=== PATIENT | male | born 1935 | race Caucasian/White ===

== ENCOUNTER → 2020-03-07 10:31 | Outpatient (CLI) | payer OTHER, SELFPAY ==
--- NOTE | ~2020-03-07 | XR_ITS ---
XR knee RT min 4V DATE: 03/07/2020 10:49 INDICATION: Right knee pain TECHNIQUE: Standing AP, PA views. Lateral view and sunrise view. COMPARISON: None FINDINGS: No fracture or dislocation or joint effusion. No periosteal reaction or bone destruction. Moderate osteopenia. There is severe loss of height of the medial compartment joint space with periarticular spurring at t he medial compartment. Lateral compartment joint space is preserved. There is mild periarticular spurring at the patellofemoral joint. IMPRESSION: Osteoarthritis involving particularly severely the medial compartment Reviewed, dictated and finalized at location B. IMPRESSION: Osteoarthritis involving particularly severely the medial compartme nt
== END ==
PROVIDERS: PCP Internal Medicine; Visit Provider Internal Medicine
DX: M17.11 Unilateral primary osteoarthritis, right knee (principal)
CPT/HCPCS: 73564

== ENCOUNTER 2022-01-31 10:21 | Outpatient (CLI) | payer OTHER, SELFPAY ==
[2022-01-31 18:57] LABS: Alanine Aminotransferase 29 U/L (6-50); Albumin Level 4.6 g/dL (3.5-5.1); Alkaline Phosphatase 79 U/L (38-126); Anion Gap 7 mmol/L (8-16); Aspartate Amino Transferase 32 U/L (17-59); Bilirubin,Total 0.9 mg/dL (0.2-1.3); Blood Urea Nitrogen 19 mg/dL (9-20); Calcium 8.9 mg/dL (8.4-10.2); Carbon Dioxide 29 mmol/L (22-30); Chloride 106 mmol/L (98-107); Cholesterol 190 mg/dL (0-200); Estimated Glomerular Filt Rate > 60; Glucose 113 mg/dL (65-110); HDL Direct 38 mg/dL; Potassium 4.2 mmol/L (3.4-5.0); Sodium 142 mmol/L (137-145); Triglycerides 199 mg/dL (<150)
[2022-01-31 19:08] LABS: LDL Cholesterol Direct 95 mg/dL
== END 2022-01-31 10:22 | disposition home or self-care (01) ==
LOC: ANHGOSHLAB 10:26
PROVIDERS: PCP Family Medicine; Visit Provider Family Medicine
DX: E78.2 Mixed hyperlipidemia (principal); I10 Essential (primary) hypertension; R73.09 Other abnormal glucose; E03.9 Hypothyroidism, unspecified
CPT/HCPCS: 36415; 80053; 80061; 83036; 84443

== ENCOUNTER 2022-06-08 10:27 | Inpatient (IN) | payer OTHER, SELFPAY ==
[2022-06-08] VITALS (12 sets, daily range): BP systolic 151–191; BP diastolic 65–92; PULSE 72–87; RESP 13–20; TEMP 36.4–36.6; O2SAT 95–100
--- NOTE | ~2022-06-08 | CT_ITS ---
EXAMINATION: CTA brain carotid DATE: 06/09/2022 13:03 INDICATION: Right hemiparesis. Facial weakness. TECHNIQUE: Computed tomographic angiography (CTA) of the head was performed without and with 100 mL O mnipaque-350 intravenous contrast. CTA of the neck was performed with intravenous contrast. Automated exposure control and iterative reconstruction technique were employed. The dose-length product was 1 868.44 mGy-cm. Maximum intensity projection and volume rendered 3D-reconstructions were created by je gunderson technologist on a separate workstation. COMPARISON: Head CT 06/08/2022 FINDINGS: HEAD CTA: There is an old infarct involving the right basal ganglia and anterior limb right internal capsule. There is an infarct involving the left basal ganglia and left internal capsule. There are sc attered areas of low attenuation in the cerebral white matter. There is no intracranial hemorrhage, a cute infarction, or abnormal intracranial mass lesion. The ventricles are normal in size. There are l ikely changes of ocular lens replacement surgeries. There is mucosal thickening in the paranasal sinu ses. There is a left otomastoid effusion. The vertebral arteries are codominant. There is moderate st enosis of distal left vertebral artery. There is no significant stenosis of basilar artery or the pos terior cerebral arteries. There is mild stenosis of the intracranial internal carotid arteries. There is no significant stenosis of the anterior or middle cerebral arteries. Anterior communicating arter y is normal. Left posterior communicating artery is normal. A right posterior communicating artery is not identified. There is no aneurysm. NECK CTA: There is mild scarring at the lung apices. There are no pathologically enlarged lymph nodes . 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 There is plaque in the proxim al internal carotid arteries. There is 0% stenosis of the proximal right internal carotid artery rela tive to normal distal artery lumen diameter (NASCET criteria). There is 0% stenosis of the proximal l eft internal carotid artery relative to normal distal artery lumen diameter. There is severe cervical spondylosis. IMPRESSION: 1. Infarct involving the left basal ganglia and left internal capsule, likely acute. 2. Old infarct involving the right basal ganglia and anterior limb right internal capsule. 3. Mild nonspecific cerebral white matter disease, which likely represents chronic small vessel ische barrie disease. 4. Moderate stenosis of distal left vertebral artery. 5. 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 6. 0% stenosis of the proximal internal carotid arteries relative to normal distal artery lumen diam eters (NASCET criteria). Reviewed, dictated and finalized at location A. ING AID CONSULTANT IMPRESSION: 1. Infarct involving the left basal ganglia and left internal capsule, likely a cute. 2. Old infarct involving the right basal ganglia and anterior limb right supply chain intern al capsule. 3. Mild nonspecific cerebral white matter disease, which likely represents micro[employer] dynamics ax consultant ni small vessel ischemic disease. 4. Moderate stenosis of distal left vertebral artery. 5. 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 6. 0% stenosis of the proximal internal carotid arteries relative to normal di stal artery lumen diameters (NASCET criteria).
--- NOTE | ~2022-06-08 | CT_ITS ---
EXAMINATION: CT brain wo con DATE: 06/11/2022 16:04 INDICATION: Decreased right paresis TECHNIQUE: Computed tomography (CT) of the head was performed without intravenous contrast. The mA wa s adjusted according to patient size. Iterative reconstruction technique was employed. Exam dose: 60 5.33 mGy-cm total exam DLP. COMPARISON: 06/11/2022 MR brain/brainstem 06/10/2022 MRI brain/brainstem 06/09/2022 CTA brain carotid 06/08/2022 CT brain FINDINGS: There is interval decreased attenuation in the left basal ganglia and periventricular area since 06/08/2022 CT brain examination, consistent with very recent nonhemorrhagic cerebrovascular acc ident. Chronic lacunar infarct in the area of the right basal ganglia and anterior limb of the right interna l capsule. Prominent bilateral vertebral artery, basilar artery and prominent bilateral carotid siphon internal carotid artery calcifications. There is nonspecific diminished attenuation of the cerebral white fransisca er, consistent with chronic small vessel ischemic changes. No intracranial mass lesion or hemorrhage, midline shift or significant mass effect. Large right maxillary sinus polyp or mucous retention cyst. The paranasal sinuses and right mastoid a ir cells are otherwise unremarkable. There is some effusion at the left mastoid air cells. No fracture or bone destruction of the cranial vault. IMPRESSION: Left basal ganglia and periventricular recent nonhemorrhagic cerebrovascular accident Chronic lacunar infarct of right basal ganglia and anterior limb of right internal capsule Cerebral atherosclerosis and chronic small vessel ischemic changes of the cerebral white matter Reviewed, dictated and finalized at Location A. Reviewed, dictated and finalized at location L. RING DISTRIBUTION CLERK IMPRESSION: Left basal ganglia and periventricular recent nonhemorrhagic cereb rovascular accident Chronic lacunar infarct of right basal ganglia and anterior limb of right inter nal capsule Cerebral atherosclerosis and chronic small vessel ischemic changes of the cereb ral white matter
--- NOTE | ~2022-06-08 | MR_ITS ---
EXAMINATION: MR brain/brain stem wo con DATE: 06/11/2022 16:33 INDICATION: Hemiparesis. TECHNIQUE: Magnetic resonance imaging (MRI) of the brain and brainstem was performed without intraven ous contrast. COMPARISON: Brain MRI 06/10/2022, head CT 06/11/2022 FINDINGS: There is an acute infarct involving the left basal ganglia and left internal capsule. There is an old infarct involving the right basal ganglia and right internal capsule. There are scattered areas of nonspecific increased T2-weighted signal intensity in the cerebral white matter. There is no intracranial hemorrhage or abnormal mass lesion. The ventricles are normal in size. There are mucous retention cysts in the maxillary sinuses. There is mild mucosal thickening in the ethmoid sinuses. T here are likely changes of ocular lens replacement surgeries. There are bilateral mastoid effusions. IMPRESSION: 1. Acute infarct involving the left basal ganglia and left internal capsule, stable from 06/10/22. 2. Old infarct involving the right basal ganglia and right internal capsule. 3. Stable mild nonspecific cerebral white matter disease, which likely represents chronic small vesse l ischemic disease. Reviewed, dictated and finalized at location A. TY SITTER IMPRESSION: 1. Acute infarct involving the left basal ganglia and left internal capsule, st able from 06/10/22. 2. Old infarct involving the right basal ganglia and right internal capsule. 3. Stable mild nonspecific cerebral white matter disease, which likely represen ts chronic small vessel ischemic disease.
--- NOTE | ~2022-06-08 | CT_ITS ---
EXAMINATION: CT brain wo con DATE: 06/08/2022 10:55 INDICATION: Aphasia. TECHNIQUE: Computed tomography (CT) of the head was performed without intravenous contrast. The mA wa s adjusted according to patient size. Iterative reconstruction technique was employed. The dose-lengt h product was 605.33 mGy-cm. COMPARISON: None FINDINGS: There is an old infarct involving the right basal ganglia and anterior limb right internal capsule. There are scattered areas of low attenuation in the cerebral white matter. There is no intra cranial hemorrhage, acute infarction, or abnormal intracranial mass lesion. The ventricles are normal in size. There is mucosal thickening in the paranasal sinuses. There are likely changes of ocular le ns replacement surgeries. There is a left otomastoid effusion. IMPRESSION: 1. Old infarct involving the right basal ganglia and anterior limb right internal capsule. 2. Mild nonspecific cerebral white matter disease, which likely represents chronic small vessel ische barrie disease. 3. Left otomastoid effusion. Reviewed, dictated and finalized at location A. CTOR INDUSTRIAL MUSEUM IMPRESSION: 1. Old infarct involving the right basal ganglia and anterior limb right engineer intern al capsule. 2. Mild nonspecific cerebral white matter disease, which likely represents glaze sprayer ni small vessel ischemic disease. 3. Left otomastoid effusion.
--- NOTE | ~2022-06-08 | XR_ITS ---
EXAMINATION: XR chest 1V DATE: 06/08/2022 10:58 INDICATION: Slurred speech. TECHNIQUE: A single frontal view of the chest was obtained. COMPARISON: Chest 2 views 01/31/2011, CT abdomen and pelvis 09/24/2013 FINDINGS: There is no pneumonia, pleural effusion, or pneumothorax. The heart size is normal. Calcifi ed right hilar lymph nodes are consistent with old granulomatous disease. IMPRESSION: 1. No acute cardiopulmonary disease. Reviewed, dictated and finalized at location A. ITAL PERSONNEL DIRECTOR
--- NOTE | ~2022-06-08 | US_ITS ---
EXAMINATION: US carotid duplex BI DATE: 06/10/2022 09:49 INDICATION: Right hemiparesis. TECHNIQUE: Grayscale, color Doppler, and pulsed Doppler images of the cervical carotid arteries were obtained. The degree of vessel stenosis is placed in one of the following categories: normal, <50%, 5 0-69%, >=70% but less than near-occlusion, near-occlusion, or total occlusion. Note that percent sten osis relative to normal distal artery lumen diameter is indirectly measured from velocity measurement s as described by Ian, et al. Radiology 2003; 229:340-346. COMPARISON: CTA 06/09/22 FINDINGS: RIGHT: The right common carotid artery (CCA) peak systolic velocity (PSV) is 91 cm/s. The right internal car otid artery (ICA) PSV is 72 cm/s. The right ICA end-diastolic velocity (EDV) is 21 cm/s. The right IC A/CCA PSV ratio is 0.8. Grayscale and color Doppler images yield an estimate of <50% diameter reducti on from plaque in the ICA. There is antegrade flow in the right vertebral artery. LEFT: The left CCA PSV is 87 cm/s. The left ICA PSV is 76 cm/s. The left ICA EDV is 20 cm/s. The left ICA/C CA PSV ratio is 0.9. Grayscale and color Doppler images yield an estimate of <50% diameter reduction from plaque in the ICA. There is antegrade flow in the left vertebral artery. IMPRESSION: 1. <50% stenosis in the right internal carotid artery. 2. <50% stenosis in the left internal carotid artery. Reviewed, dictated and finalized at location A. RITY OFFICER
--- NOTE | ~2022-06-08 | XR_ITS ---
EXAMINATION: XR barium swallow modified DATE: 06/11/2022 10:38 INDICATION: Stroke, dysphagia TECHNIQUE: Modified barium esophagram was performed by myself who administered fluoroscopy, in conju nction with speech pathologist who administered barium in varying consistencies as per speech patholo gist documentation. This was recorded on tape. A single fluoroscopic spot image was recorded. Fluoros copy exposure time was 2.3 minutes. The DAP for this procedure was 3.952 Gycm2. FINDINGS: Oral stage: Adequate function. Pharyngeal phase: Adequate function. Laryngeal penetration: None. Aspiration: None. Laryngeal sensitivity: Present. IMPRESSION: Unremarkable modified barium swallow. Please refer to speech pathologist findings and spe [facility] feeding recommendations. Reviewed, dictated and finalized at location A. TOP INSTALLER IMPRESSION: Unremarkable modified barium swallow. Please refer to speech pathol ogist findings and specific feeding recommendations.
--- NOTE | ~2022-06-08 | MR_ITS ---
EXAMINATION: MR brain/brain stem wo/w con DATE: 06/10/2022 08:57 INDICATION: Cerebrovascular accident. Speech deficit. TECHNIQUE: Magnetic resonance imaging (MRI) of the brain and brainstem was performed without and with 20 mL MultiHance intravenous contrast. COMPARISON: Head CT 06/09/2022 FINDINGS: There is an acute infarct involving the left basal ganglia and left internal capsule. There is an acute cortical infarct in left frontoparietal region. There is an old infarct involving the ri ght basal ganglia and right internal capsule. There are scattered areas of nonspecific increased T2-w eighted signal intensity in the cerebral white matter. There is no intracranial hemorrhage or abnorma l mass lesion. The ventricles are normal in size. There are mucous retention cysts in the maxillary s inuses. There is mild mucosal thickening in the ethmoid sinuses. There are likely changes of ocular l ens replacement surgeries. There are bilateral mastoid effusions. IMPRESSION: 1. Acute infarcts involving the left basal ganglia, left internal capsule, and left frontoparietal re gion. 3. Old infarct involving the right basal ganglia and right internal capsule. 3. Mild nonspecific cerebral white matter disease, which likely represents chronic small vessel ische barrie disease. Reviewed, dictated and finalized at location A. USIE INSTALLER IMPRESSION: 1. Acute infarcts involving the left basal ganglia, left internal capsule, and left frontoparietal region. 3. Old infarct involving the right basal ganglia and right internal capsule. 3. Mild nonspecific cerebral white matter disease, which likely represents foam caster ni small vessel ischemic disease.
--- NOTE | 2022-06-08 10:43 | ECG_ITS ---
Measurements Intervals [place] Rate: 75 P: 25 OR: 153 QRS: 0 QRSD: 89 T: 34 QT: 398 QTc: 446 Interpretive Statements SINUS RHYTHM BASELINE ARTIFACT- I, II, III, AVR, AVL, AVF, V2, V5-V6 NORMAL ECG NO PREVIOUS ECG AVAILABLE FOR COMPARISON Electronically Signed On 06-09-2022 7:29:56 TRAVEL AGENT by Sanju Aviles D.O.
--- NOTE | 2022-06-08 10:51 | ED.NEUROSD ---
HPI - Neuro Symptoms/Deficit General Chief Complaint: Suspected CVA Stated Complaint: weakness. slurred speech. maybe resolved Time Seen by Provider: 06/08/22 10:51 History of Present Illness HPI Narrative: this is an 86-year-old male presenting to ED with chief complaint of slurred speech/weakness. The patient was sitting on his recliner at 9:30 a.m. he started to have trouble getting out of his chair. When they called his son the son thought that he had slurred speech on the phone and EMS was called. He was then brought to the emergency room. Here in the emergency department he is asymptomatic. He has no complaints at this time. Related Data Allergies Allergy/AdvReac Type Severity Reaction Status Date / Time No Known Allergies Allergy Verified 06/08/22 11:22 Review of Systems Review of Systems: CONSTITUTIONAL: Denies night sweats. EYES: No eye pain ENT: Denies rhinorrhea CARDIOVASCULAR: Denies palpitations RESPIRATORY: Denies hemoptysis GASTROINTESTINAL: Denies hematemesis GENITOURINARY: Denies hematuria. SKIN: Denies rash MUSCULOSKELETAL: Denies myalgia. NEUROLOGIC: Denies weakness. PSYCHIATRIC: Denies delusions [facility] Past Medical History Medical History BMI 29.0-29.9,adult Heart disease Surgical History Surgical History Hx of heart artery stent Family History Family History Mother Family history of respiratory disorder Patient's mother is Social History Social History Smoking status: Never smoker Alcohol intake: never Substance use: current Gender identity (if verbalized by the patient): Male Exam Narrative: APPEARANCE: No apparent distress. Head: atraumatic. EYES: EOMI, NOSE: Atraumatic NECK: Trachea midline RESPIRATORY: No increased rate of breathing , clear to auscultation bilaterally CARDIOVASCULAR: RRR, no peripheral edema ABDOMINAL: Non-distended MUSCULOSKELETAl: No obvious deformities NEURO: Alert. Cranial nerves 2-12 grossly intact. Sensation light touch, motor function cerebellar function intact for 4 extremities. Gait exam was normal. SKIN:: Warm, dry. Normal color PSYCHIATRIC: Normal affect NIH Stroke Scale/Score (NIHSS) from [employer] on 06/08/2022 All calculations should be rechecked by clinician prior to use RESULT SUMMARY: 0 points NIH Stroke Scale INPUTS: 1A: Level of consciousness ?> 0 = Alert; keenly responsive 1B: Ask month and age ?> 0 = Both questions right 1C: 'Blink eyes' & 'squeeze hands' ?> 0 = Performs both tasks 2: Horizontal extraocular movements ?> 0 = Normal 3: Visual glynn ?> 0 = No visual loss 4: Facial palsy ?> 0 = Normal symmetry 5A: Left arm motor drift ?> 0 = No drift for 10 seconds 5B: Right arm motor drift ?> 0 = No drift for 10 seconds 6A: Left leg motor drift ?> 0 = No drift for 5 seconds 6B: Right leg motor drift ?> 0 = No drift for 5 seconds 7: Limb Ataxia ?> 0 = No ataxia 8: Sensation ?> 0 = Normal; no sensory loss 9: Language/aphasia ?> 0 = Normal; no aphasia 10: Dysarthria ?> 0 = Normal 11: Extinction/inattention ?> 0 = No abnormality Course Vital Signs Vital signs: Vital Signs Temperature 97.8 F 06/08/22 10:33 Pulse Rate 83 06/08/22 10:33 Respiratory Rate 18 06/08/22 10:33 Blood Pressure 178/78 H 06/08/22 10:33 Pulse Oximetry 100 06/08/22 10:33 Oxygen Delivery Room Air 06/08/22 10:33 Temperature 97.8 F 06/08/22 10:33 Pulse Rate 76 06/08/22 11:20 Respiratory Rate 20 06/08/22 11:20 Blood Pressure 153/79 H 06/08/22 11:20 Pulse Oximetry 96 06/08/22 11:20 Oxygen Delivery Room Air 06/08/22 10:33 MDM - Neuro Symptoms/Deficit MDM Narrative Medical decision making narrative: This is an 86-year-old male presenting to ED after an e
[2022-06-08 11:13] LABS: Basophils Absolute Auto 0.1 K/mm3 (0.0-0.1); Basophils Percent Auto 0.9 % (0.2-1.2); Eosinophils Absolute Auto 0.1 K/mm3 (0-0.3); Eosinophils Percent Auto 1.6 % (0-4.4); Hematocrit 46.8 % (42.0-52.0); Hemoglobin 15.6 g/dL (14.0-18.0); Immature Granulocyte Absolute 0.01 K/mm3 (0.00-0.031); Immature Granulocyte Percent A 0.2 % (0-0.5); Lymphocytes Absolute Auto 1.51 K/mm3 (0.9-3.2); Lymphocytes Percent Auto 23.7 % (18.3-44.2); Mean Corpuscular HGB Conc 33.3 g/dl (32-36); Mean Platelet Volume 11.8 fl (7.4-10.4); Monocytes Absolute Auto 0.6 K/mm3 (0.1-0.6); Monocytes Percent Auto 8.8 % (2.6-8.5); Neutrophils Absolute Auto 4.1 K/mm3 (1.3-6.7); Neutrophils Percent Auto 64.8 % (45.5-73.1); Platelet Count Result 171 k/mm3 (150-375); Red Blood Count 5.03 M/mm3 (4.6-6.20); Red Cell Distribution Width 12.7 % (11.5-14.5); White Blood Count 6.4 K/mm3 (4.5-10.0)
[2022-06-08 11:26] LABS: INR 1.1; Prothrombin Time 13.4 Seconds (11.1-14.7)
[2022-06-08 11:27] LABS: Partial Thromboplastin Time 27.2 SECONDS (22.3-36.8)
[2022-06-08 11:29] LABS: Alanine Aminotransferase 34 U/L (6-50); Albumin Level 4.7 g/dL (3.5-5.1); Alkaline Phosphatase 71 U/L (38-126); Anion Gap 6 mmol/L (8-16); Aspartate Amino Transferase 30 U/L (17-59); Bilirubin,Total 0.8 mg/dL (0.2-1.3); Blood Urea Nitrogen 14 mg/dL (9-20); Calcium 8.7 mg/dL (8.4-10.2); Carbon Dioxide 28 mmol/L (22-30); Chloride 106 mmol/L (98-107); Estimated CRCL calculation 66 ml/min; Estimated Glomerular Filt Rate > 60; Glucose 105 mg/dL (65-110); Potassium 4.1 mmol/L (3.4-5.0); Sodium 140 mmol/L (137-145)
[2022-06-08 11:40] LABS: Troponin I < 0.012 ng/mL (0.000-0.034)
[2022-06-08 11:46] LABS: Glucose Point of Care 108 mg/dl (65-105)
[2022-06-08 11:49] LABS: Influenza A QL RT-PCR Negative (Negative); Influenza B QL RT-PCR Negative (Negative); RSV RNA, RT-PCR Negative (Negative); SARS-CoV-2 RNA PCR Negative
[2022-06-08] MEDS: ASPIRIN 81 MG CHEWABLE TABLET 324 MG PO (14:27)
--- NOTE | 2022-06-08 16:11 | PC.NURSE ---
This patient, Jaci Shelley, was admitted to Medical Room 245-. Report received from TAMARA Carvalho. Patient/family oriented to hospital policies and general routines including ID bracelet, bed and alarms, visiting hours, pain management, procedures, bathroom and other care routines, personal items, smoking policy, room service/diet, and visiting hours. Information on how to activate the Rapid Response Team has been discussed. Patient/Family are encouraged to report perceived risks to care and to ask questions if they do not understand what they are told or what they should do.
--- NOTE | 2022-06-08 19:03 | PM.IMHP ---
H&P: HPI History of Present Illness Date/Time: 06/08/22 19:03 Chief Complaint: Suspected CVA Narrative: This is a 86-year-old male patient who has a history of CVAs. He came to the emergency room with complaints of slurred speech and weakness. The patient was sitting in a recliner at 9:30 a.m. this morning and he was having trouble getting out of his chair. The son thought that his speech was slurred and called EMS. Patient was asymptomatic when he came to the hospital. His troponin was nonreactive. His influenza A/B and RSV and COVID are all negative. Head CT was read as following1. Old infarct involving the right basal ganglia and anterior limb right internal capsule. 2. Mild nonspecific cerebral white matter disease, which likely represents chronic small vessel ischemic disease. 3. Left otomastoid effusion. Chest x-ray was read as no acute cardiopulmonary disease. -the patient was given an aspirin in the emergency room The patient is being admitted to observation status on the date of service of 06/08/2022 Review of Systems Review of Systems: See HPI All systems reviewed & are unremarkable except as noted in HPI and below Constitutional: Constitutional: Reports as per HPI and Reports no additional constitutional complaints Eyes: Eyes: Reports as per HPI and Reports no additional eye complaints ENT: Reports system reviewed and no additional complaints, except as documented and Reports Normal hearing present Cardiovascular: Cardiovascular: Reports no additional cardiovascular complaints Respiratory: Respiratory: Reports no additional respiratory complaints and Reports no additional respiratory complaints Gastrointestinal: Gastrointestinal: Reports as per HPI and Reports no additional gastrointestinal complaints Musculoskeletal: Musculoskeletal: Reports no additional musculoskeletal complaints Integumentary/Breasts: Skin/Breast: Reports system reviewed and no additional complaints, except as docu and Reports as per HPI Neurologic: Reports system reviewed and no additional complaints, except as documented, Reports as per HPI and Reports Normal hearing present Psychiatric: Psychiatric: Reports no additional psychiatric complaints and Reports as per HPI Endocrine: Endocrine: Reports no additional endocrine complaints Hematologic/Lymphatic: Hematologic/Lymphatic: Reports no additional hematologic/lymphatic complaints Allergic/Immunologic: Allergic/Immunologic: Reports no additional allergic/immunologic complaints [facility] Past Medical History Medical History BMI 29.0-29.9,adult Essential (primary) hypertension Heart disease History of CVA (cerebrovascular accident) Hypothyroidism (acquired) Mixed hyperlipidemia Surgical History Surgical History H/O cataract extraction History of removal of pigmented skin lesion Hx of heart artery stent Family History Family History Mother Family history of respiratory disorder Patient's mother is Social History Social History (Updated 06/08/22 @ 21:02 by Sharon Medley NP) Social History: He has 3 children. He lives with his . His and his son is a durable power civil litigation attorney for healthcare. The patient is retired from being a medical manager. He is lifelong nonsmoker. No alcohol or illicit drugs. The patient stated he wants to be a DNR. Smoking status: Never smoker Alcohol intake: never Substance use: never Lack of Transportation: No Lack of Food: Never True Current Housing: I Have Housing Concerned About Future Housing: No Difficulty Paying Gas/Electric Bills: No Difficulty Paying for Meds: No Currently Unemployed: No Education: Grade School Difficulty w/ Childcare or Family Care: No Gender identity (if verbalized by the patient): Male Spiritual care concer
[2022-06-09] VITALS (9 sets, daily range): BP systolic 138–171; BP diastolic 68–83; PULSE 71–88; RESP 16–18; TEMP 36.4–36.7; O2SAT 96–97
[2022-06-09] MEDS: LEVOTHYROXINE SODIUM 50 MCG TABLET PO (05:26)
[2022-06-09 05:47] LABS: Basophils Percent Auto 0.6 % (0.2-1.2); Eosinophils Absolute Auto 0.1 K/mm3 (0-0.3); Eosinophils Percent Auto 2.1 % (0-4.4); Hematocrit 45.3 % (42.0-52.0); Hemoglobin 14.8 g/dL (14.0-18.0); Immature Granulocyte Absolute 0.01 K/mm3 (0.00-0.031); Immature Granulocyte Percent A 0.2 % (0-0.5); Lymphocytes Absolute Auto 1.67 K/mm3 (0.9-3.2); Lymphocytes Percent Auto 26.3 % (18.3-44.2); Mean Corpuscular HGB Conc 32.7 g/dl (32-36); Mean Corpuscular Hemoglobin 30.8 pg (26-34); Mean Corpuscular Volume 94.4 fl (80-100); Mean Platelet Volume 12.3 fl (7.4-10.4); Monocytes Absolute Auto 0.6 K/mm3 (0.1-0.6); Monocytes Percent Auto 8.7 % (2.6-8.5); Neutrophils Absolute Auto 3.9 K/mm3 (1.3-6.7); Neutrophils Percent Auto 62.1 % (45.5-73.1); Platelet Count Result 162 k/mm3 (150-375); Red Cell Distribution Width 12.7 % (11.5-14.5); White Blood Count 6.3 K/mm3 (4.5-10.0)
[2022-06-09 05:59] LABS: Lactic Acid Reflex 1.4 mmol/L (0.7-2.0)
[2022-06-09 07:12] LABS: Alanine Aminotransferase 32 U/L (6-50); Albumin Level 4.2 g/dL (3.5-5.1); Alkaline Phosphatase 62 U/L (38-126); Anion Gap 7 mmol/L (8-16); Aspartate Amino Transferase 27 U/L (17-59); Bilirubin,Total 0.8 mg/dL (0.2-1.3); Blood Urea Nitrogen 14 mg/dL (9-20); Calcium 8.5 mg/dL (8.4-10.2); Carbon Dioxide 28 mmol/L (22-30); Chloride 102 mmol/L (98-107); Estimated CRCL calculation 60 ml/min; Estimated Glomerular Filt Rate > 60; Glucose 109 mg/dL (65-110); Magnesium 2.2 mg/dL (1.6-2.3); Potassium 3.6 mmol/L (3.4-5.0); Sodium 137 mmol/L (137-145)
[2022-06-09 07:39] LABS: Cholesterol 180 mg/dL (0-200); HDL Direct 36 mg/dL; Triglycerides 159 mg/dL (<150)
[2022-06-09 07:50] LABS: LDL Cholesterol Direct 96 mg/dL
[2022-06-09] MEDS: ATORVASTATIN 40 MG TABLET PO ×2 (08:17→14:28)
[2022-06-09] MEDS: carvediloL 3.125 MG TABLET PO ×2 (08:17→17:38)
[2022-06-09] MEDS: ASCORBIC ACID 500 MG TABLET 1000 MG PO (08:17)
[2022-06-09] MEDS: ASPIRIN 81 MG CHEWABLE TABLET PO (08:17)
--- NOTE | 2022-06-09 10:14 | PM.IMPN ---
Progress Note: A&P Assessment and Plan (1) History of CVA (cerebrovascular accident): Code(s): Z86.73 - Personal history of transient ischemic attack (TIA), and cerebral infarction without residual deficits Status: Acute Assessment and Plan: Patient presented to the ED for evaluation of slurred speech and weakness such that he was having trouble getting out of his chair. This occurred on 06/08 at 0930. Symptoms reported to resolve in the ED and NIH score 0. Patient was not a candidate for tPA. Given aspirin 325 mg PO in ED. Continued on aspirin 81 mg PO daily and atorvastatin 40 mg PO daily (home dose). Neurology consulted and appreciate recommendations. MRI brain ordered and pending Echo with bubble study pending. Carotid US pending. 06/09/22 upon my assessment at 1000 today, NIH score 7. Right arm weakness, right tongue deviation, right facial droop and ?aphasia noted. Nursing notes indicates patient had right extremity weakness sometime in the evening yesterday. 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 Bedside swallow done and okay to trial pureed with nectar thick liquids. PT/OT consult increase lipitor 80 mg daily to keep LDL<70 (2) Vertebral artery stenosis: Qualifiers: Laterality: left Qualified Code(s): I65.02 - Occlusion and stenosis of left vertebral artery Code(s): I65.09 - Occlusion and stenosis of unspecified vertebral artery Status: Acute Assessment and Plan: Noted on CTA head/neck Neurology following. MRI pending. 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 MRI pending. Consult neurosurgery for recommendations (4) Mixed hyperlipidemia: Code(s): E78.2 - Mixed hyperlipidemia Status: Chronic Assessment and Plan: Chronic, LDL 96, HDL 36, Triglycerides 159 Increase atorvastatin 80 mg daily (5) Hypothyroidism (acquired): Code(s): E03.9 - Hypothyroidism, unspecified Status: Chronic Assessment and Plan: Chronic, TSH 3.6 Continue levothyroxine (6) Essential (primary) hypertension: Code(s): I10 - Essential (primary) hypertension Status: Chronic Assessment and Plan: Chronic, patient hypertensive in ED. BP 190/77 to 151/79 Resume coreg Plan CODE STATUS: DNR Disposition: observation Discharge destination: PT/OT evaluation for recommendations. Time Spent With Patient Time with patient: 25 - 35 minutes Subjective Date/time seen: 06/09/22 10:14 Patient found lying in bed asleep. He denies complaints. Patient was not lifting his right arm and was slow to respond to questions. Review of Systems Review of Systems: ROS unobtainable: Yes unobtainable due to medical condition Exam Narrative: General:?Older adult male lying in bed sleeping, arouses to name and touch. No acute respiratory distress. HEENT:??Normocephalic. PERRL. Sclera non-icteric, mild pink injection bilaterally. Dry mucous membranes. Neck:??Supple. Respiratory:?Respirations nonlabored. Lung sounds clear to auscultation bilaterally without wheezing or rales. Cardiovascular:??Regular rate and rhythm with S1-S2.? 3/6 systolic murmur all glynn, loudest RSB. No gallops or rubs. Gastrointestinal:??Abdomen protuberant with positive bowel sounds. Nontender to palpation. No guarding. Skin:??Warm and dry.? No rash or lesions. Normal color for ethnicity. Extremities:??No edema, erythema or calf tenderness. Radial and pedal pulses +2 bilaterally. Neurological:??Speech soft, s
--- NOTE | 2022-06-09 12:13 | PCOTNOTE ---
Attempted to see pt. for occupational therapy evaluation. Pt. and family requested evaluation at later time, as pt. and family emotional, and pt. fatigued after physical therapy evaluation.
--- NOTE | 2022-06-09 13:20 | PCSTNOTE ---
Patient was seen for bedside swallowing evaluation. Right sided weakness in face and reduced lingual range of motion and strength on right, but mild. Patient tolerated mildly thickened water trials by spoon with no signs or symptoms of aspiration. Chilled applesauce was also given by spoon and other than delayed onset, patient's swallowing function for this consistency was within normal limits. Due to patient's overall condition and lack of lower dentures it was decided not to trial other food consistencies at this time. Recommendation: speech therapy 3/5 times per week to address dysphagia, begin pureed diet (level 4) and mildly thickened liquids (level 2). Swallowing precaution recommendations entered in chart. Thank you for the referral of this patient.
--- NOTE | 2022-06-09 14:06 | WPDNEURCNPN ---
Assessment and Plan Assessment and plan (1) History of CVA (cerebrovascular accident): Code(s): Z86.73 - Personal history of transient ischemic attack (TIA), and cerebral infarction without residual deficits Status: Acute (2) Aneurysm: Code(s): I72.9 - Aneurysm of unspecified site Status: Acute Plan 1 old infarct involving the right basal ganglia and anterior limb right internal capsule with nonspecific white matter disease and CTA documenting left basal ganglia and left internal capsule likely acute infarct as well but in addition old infarct involving the right basal ganglia and anterior limb of the right internal capsule, incidental finding of moderate stenosis of the distal left vertebral artery and 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 Patient had complaints of slurred speech with weakness and reportedly was sitting on his recliner at 9:30 a.m. had trouble in getting out of the chair and when he called his son he thought he had slurred speech on the phone and called the EMS then he was brought to the emergency room. He is not allergic to any medications, he does have a history of coronary artery stenting but never smoker and never drinker , initial examination in the emergency room was grossly nonfocal particularly with stroke scale of 0, vital signs were stable except blood pressure 178/[address] scan documented old infarct in the right basal ganglia and anterior limb of the right internal capsule in addition to incidental finding of left mastoid effusion EKG was without atrial fibrillation and testing for influenza AB RSV and starts COVID were negative Review of Systems Review of Systems: examination revealed him to be awake alert cooperative in no obvious acute distress, head normocephalic with no cranial bruit, ear nose throat examination was normal, neck was supple with no cervical bruit no thyromegaly no lymphadenopathy no meningeal signs, heart regular , lungs were clear to auscultation with no rhonchi or crepitations abdomen is soft nontender with normal bowel sounds, neurologically was awake alert oriented his speech was not dysphasic not dysarthric and motor examination revealed him to have decreased strength in upper and lower extremities with brisk reflexes and questionably upgoing plantar responses All systems reviewed & are unremarkable except as noted in HPI and below PMFSH Past Medical History Medical History BMI 29.0-29.9,adult Essential (primary) hypertension Heart disease History of CVA (cerebrovascular accident) Hypothyroidism (acquired) Mixed hyperlipidemia Surgical History Surgical History H/O cataract extraction History of removal of pigmented skin lesion Hx of heart artery stent Family History Family History Mother Family history of respiratory disorder Patient's mother is Social History Social History (Updated 06/08/22 @ 21:02 by Sharon Medley NP) Social History: He has 3 children. He lives with his . 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 The patient is retired from being a manager corporate. He is lifelong nonsmoker. No alcohol or illicit drugs. The patient stated he wants to be a DNR. Smoking status: Never smoker Alcohol intake: never Substance use:
[2022-06-09] MEDS: CLOPIDOGREL BISULFATE 300 MG TABLET PO (14:28)
[2022-06-10] VITALS (11 sets, daily range): BP systolic 114–146; BP diastolic 55–75; PULSE 69–88; RESP 16–20; TEMP 36.2–36.6; O2SAT 95–97
--- NOTE | 2022-06-10 | ECHO_ITS ---
Patient Info Name: Jaci Shelley Age: 86 years : 1935 Gender: Male Ht: 73 in Wt: 225 lbs BSA: 2.31 m2 HR: 72 bpm BP: 148 / 68 mmHg Heart Rhythm: Sinus Rhythm Technical Quality: Poor Exam Date: 06/10/2022 2:10 PM Exam Location: [facility] Pulmonary Exam Room: [facility] Patient Status: Inpatient Admit Date: 06/10/2022 Staff Ordering Physician: Sharon Medley NP Director Of Gift Planning: Eloina Santana RCS Attending Provider: Rahat Oden MD Referring Physician: Jasmyne RUSH; Exam Type: CA echo dop bubble study w con Study Info Indications - TIA Complete two-dimentional, color flow and Doppler transthoracic echocardiogram is performed with agitated saline and with contrast to opacify the left ventricle and to improve the delineation of the left ventricle endocardial borders. Contrast/Agitated Saline Contrast/Ag. Saline: Definity Amount: 3.00 ml Administered By: Janis Ellison RDCS Existing IV Access: Yes IV Access Condition: patent with no signs of infiltration Reason for Poor Study: patient body habitus Summary 1. Left ventricular systolic function is normal, estimated at 65-70%. 2. There is mildly increased left ventricular wall thickness. 3. The left ventricular diastolic function is grade I diastolic dysfunction. 4. Right ventricular systolic function is normal. 5. The aortic valve is not well visualized. 6. There is moderate aortic valve calcification. 7. There is moderate aortic valve stenosis with a peak velocity of 306 cm/s, mean gradient of 20 mmHg, and aortic valve area of 1.2 cm2. 8. There is mild tricuspid valve regurgitation. Left Ventricle Left ventricular chamber dimension is normal. Left ventricular systolic function is normal, estimated at 65-70%. There is mildly increased left ventricular wall thickness. The left ventricular diastolic function is grade I diastolic dysfunction. Right Ventricle Right ventricular chamber dimension is normal. Right ventricular systolic function is normal. Left Atria Left atrial chamber dimension is normal. Right Atria Right atrial chamber dimension is normal. Atrial Septum Intact interatrial septum visualized by color flow and agitated saline imaging. Aortic Valve The aortic valve is not well visualized. There is moderate aortic valve stenosis with a peak velocity of 306 cm/s, mean gradient of 20 mmHg, and aortic valve area of 1.2 cm2. There is no aortic valve regurgitation. There is moderate aortic valve calcification. Pulmonic Valve The pulmonic valve is not well visualized. Mitral Valve There is no mitral valve stenosis. There is no mitral valve regurgitation. The mitral valve annulus is mildly calcified. Tricuspid Valve There is mild tricuspid valve regurgitation. Pericardium/Pleural The pericardium appears normal. Inferior Vena Cava Normal inferior vena cava with >50% collapse upon inspiration consistent with normal right atrial pressure. Aorta The aortic root size at the sinus of Valsalva is normal. Left Ventricular Outflow Tract Name Value Normal LVOT 2D LVOT Diameter 2.1 cm LVOT Doppler
[2022-06-10] MEDS: LEVOTHYROXINE SODIUM 50 MCG TABLET PO (06:53)
--- NOTE | 2022-06-10 08:47 | PCOTNOTE ---
Attempted to see pt. for occupational therapy evaluation. Pt. away from room at this time for testing, nursing aware.
--- NOTE | 2022-06-10 09:21 | PM.IMPN ---
Progress Note: A&P Assessment and Plan (1) Acute stroke due to ischemia: Code(s): I63.9 - Cerebral infarction, unspecified Status: Acute Assessment and Plan: Patient presented to the ED for evaluation of slurred speech and weakness such that he was having trouble getting out of his chair. This occurred on 06/08 at 0930. Symptoms reported to resolve in the ED and NIH score 0. Patient was not a candidate for tPA. Given aspirin 325 mg PO in ED. Continued on aspirin 81 mg PO daily and atorvastatin 40 mg PO daily (home dose).? Neurology consulted and appreciate recommendations. MRI brain consistent with CTA showing acute infarcts involving the left basal ganglia, left internal capsule, and left frontoparietal region. Chronic right basal ganglia infarct.? Echo with bubble study pending. Carotid US <50% right and left ICA stenosis.? 06/09/22 upon my assessment at 1000 today, NIH score 7. Right arm weakness, right tongue deviation, right facial droop and ?aphasia noted. Nursing notes indicates patient had right extremity weakness sometime in the evening yesterday. 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 Modified barium swallow study 06/11/22.? Speech therapy communication eval and treat PT/OT consult increased lipitor 80 mg daily to keep LDL<70 (2) Vertebral artery stenosis: Qualifiers: Laterality: left Qualified Code(s): I65.02 - Occlusion and stenosis of left vertebral artery Code(s): I65.09 - Occlusion and stenosis of unspecified vertebral artery Status: Acute Assessment and Plan: Noted on CTA head/neck Neurology following. MRI as above . 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 MRI as above. Consult neurosurgery for recommendations - urgent intervention not needed at this time. (4) Mixed hyperlipidemia: Code(s): E78.2 - Mixed hyperlipidemia Status: Chronic Assessment and Plan: Chronic, LDL 96, HDL 36, Triglycerides 159 Increased atorvastatin 80 mg daily (5) Hypothyroidism (acquired): Code(s): E03.9 - Hypothyroidism, unspecified Status: Chronic Assessment and Plan: Chronic, TSH 3.6 Continue levothyroxine (6) Essential (primary) hypertension: Code(s): I10 - Essential (primary) hypertension Status: Chronic Assessment and Plan: Chronic, patient hypertensive in ED. BP 171/83 to 146/75 Resumed coreg. Add lisinopril 10 mg PO daily Plan CODE STATUS: DNR Disposition: PT/OT recommend acute rehab Time Spent With Patient Time: All of patient and family questions answered to the best of my ability. Plan of care reviewed. Time with patient: 25 - 35 minutes Subjective Date/time seen: 06/10/22 09:21 No new complaints or overnight events. and son at bedside. He reports no change to right arm weakness or facial droop. Review of Systems Review of Systems: All systems reviewed & are unremarkable except as noted in HPI and below Exam Narrative: General:?Older adult male lying in bed sleeping, arouses to name and touch. No acute respiratory distress. HEENT:??Normocephalic. PERRL. Sclera non-icteric, mild pink injection bilaterally. Moist mucous membranes. Very [place]. Neck:??Supple. Respiratory:?Respirations nonlabored. Lung sounds clear to auscultation bilaterally without wheezing or rales. Cardiovascular:??Regular rate and rhythm with S1-S2.? 3/6 systolic murmur all glynn, loudest RSB. No gallops or rub
--- NOTE | 2022-06-10 09:26 | PCSTNOTE ---
Therapist attempted to see patient around 8:45 and patient is away from room for testing. Will attempt later.
[2022-06-10] MEDS: ASCORBIC ACID 500 MG TABLET 1000 MG PO (10:47)
[2022-06-10] MEDS: ASPIRIN 81 MG CHEWABLE TABLET PO (10:48)
[2022-06-10] MEDS: lisinopriL 10 MG TABLET PO (10:49)
[2022-06-10] MEDS: ATORVASTATIN 40 MG TABLET 80 MG PO (10:49)
[2022-06-10] MEDS: carvediloL 3.125 MG TABLET PO ×2 (10:49→16:55)
[2022-06-10] MEDS: PERFLUTREN LIPID MICROSPHERES 1.5 ML VIAL DILUTED TO 10 ML TOTAL VOLUME IV PUSH (14:35)
[2022-06-10] MEDS: SENNA/DOCUSATE SODIUM TABLET 1 TAB PO (20:03)
[2022-06-11] VITALS (12 sets, daily range): BP systolic 112–146; BP diastolic 56–64; PULSE 65–83; RESP 18; TEMP 36.3–36.7; O2SAT 93–95
[2022-06-11 05:21] LABS: Hematocrit 45.9 % (42.0-52.0); Hemoglobin 14.9 g/dL (14.0-18.0); Mean Corpuscular HGB Conc 32.5 g/dl (32-36); Mean Corpuscular Hemoglobin 31.3 pg (26-34); Mean Corpuscular Volume 96.4 fl (80-100); Mean Platelet Volume 12.3 fl (7.4-10.4); Platelet Count Result 139 k/mm3 (150-375); Red Blood Count 4.76 M/mm3 (4.6-6.20); Red Cell Distribution Width 12.8 % (11.5-14.5); White Blood Count 9.3 K/mm3 (4.5-10.0)
[2022-06-11 05:36] LABS: Anion Gap 6 mmol/L (8-16); Blood Urea Nitrogen 20 mg/dL (9-20); Calcium 8.1 mg/dL (8.4-10.2); Carbon Dioxide 28 mmol/L (22-30); Chloride 102 mmol/L (98-107); Estimated CRCL calculation 66 ml/min; Estimated Glomerular Filt Rate > 60; Glucose 107 mg/dL (65-110); Potassium 3.7 mmol/L (3.4-5.0); Sodium 136 mmol/L (137-145)
[2022-06-11] MEDS: LEVOTHYROXINE SODIUM 50 MCG TABLET PO (05:38)
[2022-06-11] MEDS: ATORVASTATIN 40 MG TABLET 80 MG PO (09:17)
[2022-06-11] MEDS: lisinopriL 10 MG TABLET PO (09:18)
[2022-06-11] MEDS: carvediloL 3.125 MG TABLET PO ×2 (09:18→17:45)
[2022-06-11] MEDS: ASCORBIC ACID 500 MG TABLET 1000 MG PO (09:18)
[2022-06-11] MEDS: ASPIRIN 81 MG CHEWABLE TABLET PO (09:23)
--- NOTE | 2022-06-11 10:53 | PCSTNOTE ---
Please refer to the Modified Barium Swallow Evaluation in the EMR.
--- NOTE | 2022-06-11 15:10 | PCOTNOTE ---
Per RN pt is unavailable due to being prepared for CT at this time. Continue with POC.
--- NOTE | 2022-06-11 15:41 | PM.IMPN ---
Progress Note: A&P Assessment and Plan (1) Acute stroke due to ischemia: Code(s): I63.9 - Cerebral infarction, unspecified Status: Acute Assessment and Plan: Patient presented to the ED for evaluation of slurred speech and weakness such that he was having trouble getting out of his chair. This occurred on 06/08 at 0930. Symptoms reported to resolve in the ED and NIH score 0. Patient was not a candidate for tPA. Given aspirin 325 mg PO in ED. Continued on aspirin 81 mg PO daily and atorvastatin 40 mg PO daily (home dose).? Neurology consulted and appreciate recommendations. MRI brain consistent with CTA showing acute infarcts involving the left basal ganglia, left internal capsule, and left frontoparietal region. Chronic right basal ganglia infarct.? Echo with bubble study pending. Carotid US <50% right and left ICA stenosis.? 06/09/22 upon my assessment at 1000 today, NIH score 7. Right arm weakness, right tongue deviation, right facial droop and ?aphasia noted. Nursing notes indicates patient had right extremity weakness sometime in the evening yesterday. 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 Modified barium swallow study 06/11/22 patient passed without diet modifications.? Speech therapy communication eval and treat PT/OT consult increased lipitor 80 mg daily to keep LDL<70 06/11/22 patient with flaccid right side which is a neuro change. Neurology notified. Repeat head CT and MRI ordered and pending. (2) Vertebral artery stenosis: Qualifiers: Laterality: left Qualified Code(s): I65.02 - Occlusion and stenosis of left vertebral artery Code(s): I65.09 - Occlusion and stenosis of unspecified vertebral artery Status: Acute Assessment and Plan: Noted on CTA head/neck Neurology following. MRI as above. 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 MRI as above. Consult neurosurgery for recommendations - urgent intervention not needed at this time. Discussed outpatient follow-up with patient, , son and other family members. (4) Mixed hyperlipidemia: Code(s): E78.2 - Mixed hyperlipidemia Status: Chronic Assessment and Plan: Chronic, LDL 96, HDL 36, Triglycerides 159 Increased atorvastatin 80 mg daily on admisison (5) Hypothyroidism (acquired): Code(s): E03.9 - Hypothyroidism, unspecified Status: Chronic Assessment and Plan: Chronic, TSH 3.6 Continue levothyroxine (6) Essential (primary) hypertension: Code(s): I10 - Essential (primary) hypertension Status: Chronic Assessment and Plan: Chronic, patient hypertensive in ED. BP 171/83 to 146/75 Resumed coreg. Add lisinopril 10 mg PO daily Plan CODE STATUS: DNR Disposition: PT/OT recommend acute rehab Time Spent With Patient Time: All of family's questions were answered to the best of my ability. Time with patient: 25 - 35 minutes Subjective Date/time seen: 06/11/22 15:41 Patient found lying in bed. He had modified barium swallow today and did not require dietary modifications. Family is a bedside and reports the patient cannot use his right arm or leg. He was able to do so last night, per family. Review of Systems Review of Systems: All systems reviewed & are unremarkable except as noted in HPI and below Exam Narrative: General:?No acute respiratory distress. HEENT:??Normocephalic. PERRL. Sclera non-icteric. Moist mucous membranes. Very [place].
[2022-06-11] MEDS: SENNA/DOCUSATE SODIUM TABLET 1 TAB PO (20:58)
[2022-06-12] VITALS: PULSE 69
[2022-06-12 03:24] VITALS: BP 120/64; PULSE 75; RESP 18; TEMP 36.6; O2SAT 94
[2022-06-12 04:00] VITALS: PULSE 80
[2022-06-12] MEDS: LEVOTHYROXINE SODIUM 50 MCG TABLET PO (06:30)
--- NOTE | 2022-06-12 07:02 | PM.IMPN ---
Progress Note: A&P Assessment and Plan (1) Acute stroke due to ischemia: Code(s): I63.9 - Cerebral infarction, unspecified Status: Acute Assessment and Plan: Patient presented to the ED for evaluation of slurred speech and weakness such that he was having trouble getting out of his chair. This occurred on 06/08 at 0930. Symptoms reported to resolve in the ED and NIH score 0. Patient was not a candidate for tPA. Given aspirin 325 mg PO in ED. Continued on aspirin 81 mg PO daily and atorvastatin 40 mg PO daily (home dose).? Neurology consulted and appreciate recommendations. MRI brain consistent with CTA showing acute infarcts involving the left basal ganglia, left internal capsule, and left frontoparietal region. Chronic right basal ganglia infarct.? Echo with bubble study pending. Carotid US <50% right and left ICA stenosis.? 06/09/22 upon my assessment at 1000 today, NIH score 7. Right arm weakness, right tongue deviation, right facial droop and aphasia noted. Nursing notes indicates patient had right extremity weakness sometime in the evening yesterday. 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 Modified barium swallow study 06/11/22 patient passed without diet modifications.? Speech therapy communication eval and treat PT/OT consult increased lipitor 80 mg daily to keep LDL<70 06/11/22 patient with flaccid right side which is a neuro change. Neurology notified. Repeat head CT and MRI ordered Repeat CT on 06/11/22 involving left basal ganglia, chronic lacunar infarct of right basal ganglia and right internal capsule Repeat brain MRI 06/11/22 acute infarct involving left basal ganglia and left internal capsule, stable from 06/10/22 (2) Vertebral artery stenosis: Qualifiers: Laterality: left Qualified Code(s): I65.02 - Occlusion and stenosis of left vertebral artery Code(s): I65.09 - Occlusion and stenosis of unspecified vertebral artery Status: Acute Assessment and Plan: Noted on CTA head/neck Neurology following. MRI as above. 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 MRI as above. Consult neurosurgery for recommendations - urgent intervention not needed at this time. Discussed outpatient follow-up with patient, , son and other family members. (4) Mixed hyperlipidemia: Code(s): E78.2 - Mixed hyperlipidemia Status: Chronic Assessment and Plan: Chronic, LDL 96, HDL 36, Triglycerides 159 Increased atorvastatin 80 mg daily on admisison (5) Hypothyroidism (acquired): Code(s): E03.9 - Hypothyroidism, unspecified Status: Chronic Assessment and Plan: Chronic, TSH 3.6 Continue levothyroxine (6) Essential (primary) hypertension: Code(s): I10 - Essential (primary) hypertension Status: Chronic Assessment and Plan: Chronic, patient hypertensive in ED. BP 171/83 to 146/75 Resumed coreg. Add lisinopril 10 mg PO daily Plan CODE STATUS: DNR Disposition: PT/OT recommend acute rehab Subjective Date/time seen: 06/12/22 07:02 Objective Data Vital Signs Vital Signs: Vital Signs - 24 hr 06/11/22 09:18 06/11/22 09:18 06/11/22 08:00 Temperature Pulse Rate 83 71 Respiratory Rate Blood Pressure Pulse Oximetry Oxygen Delivery Room Air 06/11/22 12:00 06/11/22 14:00 06/11/22 17:45 Temperature 98.1 F Pulse Rate 80 72 78 Respiratory Rate 18 Blood Pressure 112/59 L Pulse Oximetry 93 Oxyge
[2022-06-12 07:48] LABS: Anion Gap 3 mmol/L (8-16); Blood Urea Nitrogen 24 mg/dL (9-20); Calcium 8.4 mg/dL (8.4-10.2); Carbon Dioxide 29 mmol/L (22-30); Chloride 104 mmol/L (98-107); Estimated CRCL calculation 60 ml/min; Estimated Glomerular Filt Rate > 60; Glucose 122 mg/dL (65-110); Potassium 3.8 mmol/L (3.4-5.0); Sodium 136 mmol/L (137-145)
[2022-06-12 07:50] LABS: Hematocrit 45.3 % (42.0-52.0); Hemoglobin 14.8 g/dL (14.0-18.0); Mean Corpuscular HGB Conc 32.7 g/dl (32-36); Mean Corpuscular Hemoglobin 30.9 pg (26-34); Mean Corpuscular Volume 94.6 fl (80-100); Mean Platelet Volume 11.9 fl (7.4-10.4); Platelet Count Result 140 k/mm3 (150-375); Red Blood Count 4.79 M/mm3 (4.6-6.20); Red Cell Distribution Width 12.7 % (11.5-14.5); White Blood Count 9.3 K/mm3 (4.5-10.0)
[2022-06-12 08:00] VITALS: PULSE 77
--- NOTE | 2022-06-12 09:03 | WPDNEURCNPN ---
Assessment and Plan Assessment and plan (1) Acute stroke due to ischemia: Code(s): I63.9 - Cerebral infarction, unspecified Status: Acute (2) Vertebral artery stenosis: Qualifiers: Laterality: left Qualified Code(s): I65.02 - Occlusion and stenosis of left vertebral artery Code(s): I65.09 - Occlusion and stenosis of unspecified vertebral artery Status: Acute (3) Aneurysm: Code(s): I72.9 - Aneurysm of unspecified site Status: Acute (4) Mixed hyperlipidemia: Code(s): E78.2 - Mixed hyperlipidemia Status: Chronic (5) Essential (primary) hypertension: Code(s): I10 - Essential (primary) hypertension Status: Chronic Plan Jaci Shelley is a 86 year old male with a history of HTN, HLD, CAD, and prior stroke who presented on 06/08 due to slurred speech and right sided weakness. He was found to have left hemispheric infarct, that is unchanged from prior MRI done several days ago. Worsening weakness of the right side likely related to evolving stroke and edema. Recommend DAPT for 3 months and Aspirin monotherapy afterwards. Discussed risk of bleeding in the setting of aneurysm. verbalized understanding and is okay with initiating DAPT. - Continue Aspirin 81mg daily - Add Plavix 75mg daily x 3 months - Continue Lipitor 80mg daily - Outpatient follow-up for aneurysm with Neurosurgery - PT/OT Consult date: 06/12/22 Reason for consult: Stroke HPI: Jaci Shelley is a 86 year old male with a history of HTN, HLD, CAD, and prior stroke who presented on 06/08 due to slurred speech and right sided weakness. He presented to [facility] ED where he was given a loading dose of aspirin. CT showed chronic right basal ganglia infarct. MRI showed acute infarcts involving the left basal ganglia, left internal capsule and left frontoparietal region. He was continued on home Lipitor 40mg daily. CTA brain and carotid showed moderate stenosis of distal left vertebral artery with proximal 10mm saccular aneurysm. Neurosurgery was consulted for the aneurysm, and recommend outpatient follow-up with no acute intervention. On 06/11 he had worsening of R sided weakness. Repeat CT head was obtained as well as MRI brain which showed stable infarcts from prior MRI that was done on 06/10/22. Currently he is on Aspirin 81mg daily and Lipitor 80mg daily. Patient still quite weak on the right side. He denies any changes from yesterday. denies any new concerns. Discussed initiation of Plavix in the setting of aneurysm, and risk of hemorrhage. Review of Systems Constitutional: Constitutional: Reports no additional constitutional complaints Eyes: Eyes: Reports no additional eye complaints ENT: Comments: chronic hearing loss Cardiovascular: Cardiovascular: Reports no additional cardiovascular complaints Respiratory: Respiratory: Reports no additional respiratory complaints Gastrointestinal: Gastrointestinal: Reports no additional gastrointestinal complaints Genitourinary: Genitourinary: Reports no additional male genitourinary complaints Musculoskeletal: Musculoskeletal: Reports no additional musculoskeletal complaints Integumentary/Breasts: Skin/Breast: Reports system reviewed and no additional complaints, except as docu Neurologic: Reports as per HPI Psychiatric: Psychiatric: Reports no additional psychiatric complaints PMFSH Past Medical History Medical History Atherosclerotic heart disease of [place] coronary artery with other forms of angina pectoris BMI 29.0-29.9,adult Essential (primary) hypertension Heart disease History of CVA (cerebrovascular accident) Hypothyroidism (acquired) Mixed hyperlipidemia Osteoarthritis of right knee Surgical History Surgical History H/O cataract extraction History of removal of pigmented skin lesion Hx of heart artery stent Fam
[2022-06-12 09:07] VITALS: PULSE 80
[2022-06-12] MEDS: ATORVASTATIN 40 MG TABLET 80 MG PO (09:07)
[2022-06-12] MEDS: ASCORBIC ACID 500 MG TABLET 1000 MG PO (09:07)
[2022-06-12] MEDS: ASPIRIN 81 MG CHEWABLE TABLET PO (09:07)
[2022-06-12] MEDS: carvediloL 3.125 MG TABLET PO (09:07)
[2022-06-12] MEDS: lisinopriL 10 MG TABLET PO (09:08)
[2022-06-12 12:00] VITALS: PULSE 91
--- NOTE | 2022-06-12 12:27 | P.DS_ITS ---
DS: Admitting Diagnosis Discharge Date 06/12/22 Admitting Diagnosis CVA DS: Discharge Diagnosis Discharge Diagnosis (1) Acute stroke due to ischemia: Code(s): I63.9 - Cerebral infarction, unspecified Status: Acute Assessment and Plan: Patient presented to the ED for evaluation of slurred speech and weakness such that he was having trouble getting out of his chair. This occurred on 06/08 at 0930. Symptoms reported to resolve in the ED and NIH score 0. Patient was not a candidate for tPA. * Given aspirin 325 mg PO in ED. * Continued on aspirin 81 mg PO daily and atorvastatin 40 mg PO daily (home dose).? * Neurology consulted and appreciate recommendations. * MRI brain consistent with CTA showing acute infarcts involving the left basal ganglia, left internal capsule, and left frontoparietal region. Chronic right basal ganglia infarct.? * Echo with bubble study pending. * Carotid US <50% right and left ICA stenosis.? * 06/09/22 upon my assessment at 1000 today, NIH score 7. Right arm weakness, right tongue deviation, right facial droop and aphasia noted. Nursing notes indicates patient had right extremity weakness sometime in the evening yesterday. * 06/09/22 Stat CTA head/neck obtained showing acute left basal ganglia and old right basal ganglia infarct, as well as moderate stenosis of distal left vertebral artery with proximal 10 mm saccular aneurysm. 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 Modified barium swallow study 06/11/22 patient passed without diet modifications.? * Speech therapy communication eval and treat * PT/OT consult * increased lipitor 80 mg daily to keep LDL<70 * 06/11/22 patient with flaccid right side which is a neuro change. Neurology notified. Repeat head CT and MRI ordered * Repeat CT on 06/11/22 involving left basal ganglia, chronic lacunar infarct of right basal ganglia and right internal capsule * Repeat brain MRI 06/11/22 acute infarct involving left basal ganglia and left internal capsule, stable from 06/10/22 * 06/12/22 patient doing well and remained stable. Discussed with Dr. Frazier in she agrees with discharge to rehab. (2) Vertebral artery stenosis: Qualifiers: Laterality: left Qualified Code(s): I65.02 - Occlusion and stenosis of left vertebral artery Code(s): I65.09 - Occlusion and stenosis of unspecified vertebral artery Status: Acute Assessment and Plan: Noted on CTA head/neck * Neurology following. * MRI as above. (3) Aneurysm: Code(s): I72.9 - Aneurysm of unspecified site Status: Acute Assessment and Plan: Noted on CTA head/neck with 10 mm saccular aneurysm to left proximal vertebral artery * Neurology following. * MRI as above. * Consult neurosurgery for recommendations - urgent intervention not needed at this time. * Discussed outpatient follow-up with patient, , son and other family member s. (4) Mixed hyperlipidemia: Code(s): E78.2 - Mixed hyperlipidemia Status: Chronic Assessment and Plan: Chronic, LDL 96, HDL 36, Triglycerides 159 * Increased atorvastatin 80 mg daily on admisison (5) Hypothyroidism (acquired): Code(s): E03.9 - Hypothyroidism, unspecified Status: Chronic Assessment and Plan: Chronic, TSH 3.6 Continue levothyroxine (6) Essential (primary) hypertension: Code(s): I10 - Essential (primary) hypertension Status: Chronic Assessment and Plan: Chronic
--- NOTE | 2022-06-12 12:27 | PM.DS ---
DS: Admitting Diagnosis Discharge Date 06/12/22 Admitting Diagnosis CVA DS: Discharge Diagnosis Discharge Diagnosis (1) Acute stroke due to ischemia: Code(s): I63.9 - Cerebral infarction, unspecified Status: Acute Assessment and Plan: Patient presented to the ED for evaluation of slurred speech and weakness such that he was having trouble getting out of his chair. This occurred on 06/08 at 0930. Symptoms reported to resolve in the ED and NIH score 0. Patient was not a candidate for tPA. Given aspirin 325 mg PO in ED. Continued on aspirin 81 mg PO daily and atorvastatin 40 mg PO daily (home dose).? Neurology consulted and appreciate recommendations. MRI brain consistent with CTA showing acute infarcts involving the left basal ganglia, left internal capsule, and left frontoparietal region. Chronic right basal ganglia infarct.? Echo with bubble study pending. Carotid US <50% right and left ICA stenosis.? 06/09/22 upon my assessment at 1000 today, NIH score 7. Right arm weakness, right tongue deviation, right facial droop and aphasia noted. Nursing notes indicates patient had right extremity weakness sometime in the evening yesterday. 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 Modified barium swallow study 06/11/22 patient passed without diet modifications.? Speech therapy communication eval and treat PT/OT consult increased lipitor 80 mg daily to keep LDL<70 06/11/22 patient with flaccid right side which is a neuro change. Neurology notified. Repeat head CT and MRI ordered Repeat CT on 06/11/22 involving left basal ganglia, chronic lacunar infarct of right basal ganglia and right internal capsule Repeat brain MRI 06/11/22 acute infarct involving left basal ganglia and left internal capsule, stable from 06/10/22 06/12/22 patient doing well and remained stable. Discussed with Dr. Frazier in she agrees with discharge to rehab. (2) Vertebral artery stenosis: Qualifiers: Laterality: left Qualified Code(s): I65.02 - Occlusion and stenosis of left vertebral artery Code(s): I65.09 - Occlusion and stenosis of unspecified vertebral artery Status: Acute Assessment and Plan: Noted on CTA head/neck Neurology following. MRI as above. 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 MRI as above. Consult neurosurgery for recommendations - urgent intervention not needed at this time. Discussed outpatient follow-up with patient, , son and other family members. (4) Mixed hyperlipidemia: Code(s): E78.2 - Mixed hyperlipidemia Status: Chronic Assessment and Plan: Chronic, LDL 96, HDL 36, Triglycerides 159 Increased atorvastatin 80 mg daily on admisison (5) Hypothyroidism (acquired): Code(s): E03.9 - Hypothyroidism, unspecified Status: Chronic Assessment and Plan: Chronic, TSH 3.6 Continue levothyroxine (6) Essential (primary) hypertension: Code(s): I10 - Essential (primary) hypertension Status: Chronic Assessment and Plan: Chronic, patient hypertensive in ED. BP 171/83 to 146/75 Resumed coreg. Add lisinopril 10 mg PO daily Continued lisinopril 10 mg as an outpatient Advised follow-up with PCP within the week to recheck blood pressure. Plan CODE STATUS: DNR Disposition: PT/OT recommend acute rehab DS: Summary Hospital Course Reason for hospitalization: CVA Hospital Course: 86-year-old male with history of hypertension, hyper
== END 2022-06-12 14:20 | DRG 65 ==
LOC: ANHED 11:07 → ANH2MED 15:07
PROVIDERS: Internal Medicine Critical Care Medicine; Nurse Practitioner; Nurse Practitioner Family; Admitting Provider Internal Medicine; Emergency Provider Emergency Medicine; PCP Family Medicine; Visit Provider Internal Medicine
DX: G81.91 Hemiplegia, unspecified affecting right dominant side; R29.707 NIHSS score 7; I63.9 Cerebral infarction, unspecified; I65.22 Occlusion and stenosis of left carotid artery; I72.6 Aneurysm of vertebral artery; R47.01 Aphasia; E03.9 Hypothyroidism, unspecified; E78.2 Mixed hyperlipidemia; I10 Essential (primary) hypertension; I25.10 Atherosclerotic heart disease of native coronary artery without angina pectoris; Z66 Do not resuscitate; Z98.49 Cataract extraction status, unspecified eye; Z79.82 Long term (current) use of aspirin; Z20.822 Contact with and (suspected) exposure to COVID-19; Z28.21 Immunization not carried out because of patient refusal; Z95.5 Presence of coronary angioplasty implant and graft; Z86.73 Personal history of transient ischemic attack (TIA), and cerebral infarction without residual deficits
CPT/HCPCS: 36415; 70450; 70496; 70498; 70551; 70553; 71045; 80048; 80053; 80061; 82948; 83605; 83735; 84443; 84484; 85025; 85027; 85610; 85730; 87637; 92507; 92523; 92610; 92611; 93005; 93880; 96375; 97110; 97162; 97166; 97530; 99285; A9270; A9577; C8929; G0378; Q9957; Q9967

== ENCOUNTER 2022-06-14 16:27 | Emergency (ER) | payer OTHER, SELFPAY ==
[2022-06-14] VITALS (18 sets, daily range): BP systolic 106–124; BP diastolic 69–85; PULSE 100–121; RESP 9–23; TEMP 36.4; O2SAT 89–94
--- NOTE | ~2022-06-14 | CT_ITS ---
EXAMINATION: CT brain wo con DATE: 06/14/2022 17:38 INDICATION: Patient unresponsive TECHNIQUE: Computed tomography (CT) of the head was performed without intravenous contrast. The dose- length product was 605.33 mGy-cm. Automated exposure control and iterative reconstruction technique w ere employed. COMPARISON: CT brain dated 06/11/2022 and MRI dated 06/11/2022 FINDINGS: There are acute infarctions of the left basal ganglia, unchanged from prior study. No signi ficant mass effect or associated hemorrhage. There are chronic right lacunar infarctions. There is in tracranial atherosclerosis. Midline sagittal images are unremarkable. There are mucous retention cyst of the maxillary sinuses. No depressed skull fractures. No ventriculomegaly or midline shift. Basila r cisterns are patent. Mild generalized atrophy. There are scattered mild periventricular and subcort ical white matter changes, most likely related to small vessel ischemic disease (microangiopathy). IMPRESSION: 1. Stable appearance to acute left basal ganglia infarctions. 2: Chronic right lacunar infarctions. 3: Chronic age-related findings. Reviewed, dictated and finalized at location A. HEAT EXCHANGER CLEANER
--- NOTE | ~2022-06-14 | XR_ITS ---
EXAMINATION: XR chest 1V portable 06/14/2022 16:55 INDICATION: Cardiac arrest PROCEDURE: AP portable chest COMPARISON: 06/08/2022 FINDINGS: The lungs are clear. The cardiomediastinal silhouette is within normal limits. There are no pleural effusions. There is no pneumothorax suspected. IMPRESSION: 1: NO ACUTE CARDIOPULMONARY DISEASE. Reviewed, dictated and finalized at location A. AL CONTROL AGENT
--- NOTE | 2022-06-14 16:38 | ECG_ITS ---
Measurements Intervals [place] Rate: 102 P: 36 NH: 149 QRS: 26 QRSD: 153 T: 30 QT: 360 QTc: 469 Interpretive Statements SINUS TACHYCARDIA RIGHT BUNDLE BRANCH BLOCK CONSIDER INFERIOR INFARCT, AGE INDETERMINATE ABNORMAL ECG COMPARED TO ECG 06/08/2022 11:05:47 SINUS TACHYCARDIA NOW PRESENT RIGHT BUNDLE-BRANCH BLOCK NOW PRESENT Electronically Signed On 06-14-2022 16:45:44 HOTEL OPERATIONS MANAGER by Sanju Aviles D.O.
--- NOTE | 2022-06-14 16:43 | ED.GENADULT ---
HPI - General Adult General Chief complaint: Unspecified Stated complaint: unresponsive Time Seen by Provider: 06/14/22 16:33 Source: EMS Mode of arrival: EMS Limitations: clinical condition History of Present Illness HPI narrative: Patient is 86 years old white [facility] with a diagnosis of CVA with right hemiplegia/flaccid/aphasia. Patient is awake, alert, can answer some questions, wheelchair-bound, DNR, on baby aspirin once a day. History of hypothyroidism, hypertension, hyperlipidemia. Patient went to the bathroom for a bowel movement, was not successful and become unresponsive, pulseless, apneic, CPR was started immediately after 5 compression patient was able to open his eyes but still less responsive, patient came to the emergency room by ambulance, still unresponsive to verbal commands, responsive to painful stimulation, unable to communicate verbally. Related Data Home Medications Medication Instructions Recorded Confirmed carvedilol 3.125 mg tablet 3.125 mg PO BID 06/08/22 06/14/22 aspirin 81 mg tablet,delayed 81 mg PO DAILY 06/14/22 06/14/22 release atorvastatin 40 mg tablet 40 mg PO DAILY 06/14/22 06/14/22 hydrochlorothiazide 25 mg tablet 25 mg PO DAILY 06/14/22 06/14/22 Allergies Allergy/AdvReac Type Severity Reaction Status Date / Time No Known Allergies Allergy Verified 06/08/22 16:14 Review of Systems Review of Systems: ROS unobtainable: Yes unobtainable due to medical condition and unobtainable due to mental status PMFSH Past Medical History Medical History Atherosclerotic heart disease of [place] coronary artery with other forms of angina pectoris BMI 29.0-29.9,adult Essential (primary) hypertension Heart disease History of CVA (cerebrovascular accident) Hypothyroidism (acquired) Mixed hyperlipidemia Osteoarthritis of right knee Surgical History Surgical History H/O cataract extraction History of removal of pigmented skin lesion Hx of heart artery stent Family History Family History Mother Family history of respiratory disorder Patient's mother is Heart disease Father Malignant neoplasm of prostate Social History Social History Social History: He has 3 children. He lives with his . His and his son is a durable power cma for healthcare. The patient is retired from being a automotive dismantler. He is lifelong nonsmoker. No alcohol or illicit drugs. The patient stated he wants to be a DNR. Smoking status: Never smoker Alcohol intake: never Substance use: never Lack of Transportation: No Lack of Food: Never True Current Housing: I Have Housing Concerned About Future Housing: No Difficulty Paying Gas/Electric Bills: No Difficulty Paying for Meds: No Currently Unemployed: No Education: Grade School Difficulty w/ Childcare or Family Care: No Gender identity (if verbalized by the patient): Male Spiritual care concerns: Yes ([employer]) Exam Narrative: General appearance: Well-developed, well-nourished, responsive to painful stimulation, Skin: Normal color Head: Normocephalic, nontraumatic Eyes: Clear conjunctiva ENT: Oropharynx normal, ears normal, nose normal Neck: Supple, nontender Chest and respiratory: Airway patent, no respiratory distress, no accessory muscle use Heart: Regular rate/rhythm Abdomen: Soft, nontender, no organomegaly, quiet bowel sounds Vascular: Normal peripheral pulses, normal capillary refill. Musculoskeletal: Neurologic: Responsive to verbal commands with right hemiplegia/flaccid
[2022-06-14 17:23] LABS: Alveolar/Arterial O2 Gradient 50.1 mmHg; Base Excess ABG -0.7 mEq/l (+/-2.0); Basophils Absolute Auto 0.1 K/mm3 (0.0-0.1); Basophils Percent Auto 0.4 % (0.2-1.2); Eosinophils Absolute Auto 0.1 K/mm3 (0-0.3); Eosinophils Percent Auto 0.8 % (0-4.4); Fractional Inspired Oxygen 21 %; HCO3 ABG 22.6 mEq/l (22.0-26.0); Hematocrit 49.2 % (42.0-52.0); Immature Granulocyte Absolute 0.04 K/mm3 (0.00-0.031); Immature Granulocyte Percent A 0.3 % (0-0.5); Lymphocytes Absolute Auto 2.02 K/mm3 (0.9-3.2); Lymphocytes Percent Auto 17.3 % (18.3-44.2); Mean Corpuscular HGB Conc 32.5 g/dl (32-36); Mean Corpuscular Hemoglobin 30.8 pg (26-34); Mean Corpuscular Volume 94.6 fl (80-100); Mean Platelet Volume 12.9 fl (7.4-10.4); Monocytes Absolute Auto 0.8 K/mm3 (0.1-0.6); Monocytes Percent Auto 7.1 % (2.6-8.5); Neutrophils Absolute Auto 8.7 K/mm3 (1.3-6.7); Neutrophils Percent Auto 74.1 % (45.5-73.1); Oxygen Content ABG 19.5 %vol (16.0-22.0); PCO2 ABG 33.6 mmHg (35.0-45.0); PO2 ABG 59.4 mmHg (80.0-100.0); PO2 FiO2 Ratio Arterial Blood 2.83 %; Platelet Count Result 140 k/mm3 (150-375); Red Cell Distribution Width 12.7 % (11.5-14.5); Total Hemoglobin 15.9 g/dL (12.0-18.0); White Blood Count 11.7 K/mm3 (4.5-10.0); pH ABG 7.445 (7.350-7.450)
[2022-06-14 17:25] LABS: Add Urine Microscopic? YES; Appearance Urine Clear (Clear); Bilirubin Urine Negative (Negative); Blood Urine 3+ (Negative); Color Urine Yellow (Yellow); Glucose Urine UA Negative (Negative); Ketones Urine Negative (Negative); Leukocyte Esterase Ur Trace LEU/UL (Negative); Nitrate Urine Negative (Negative); Protein Urine 2+ mg/dL (Negative); Specific Grav Ur >= 1.030 (1.001-1.035)
[2022-06-14 17:26] LABS: Device ROOM AIR; Modified Allen's Test Pass; Oxyhemoglobin 87.5 % THb (90.0-100.0); Site Drawn LEFT RADIAL
[2022-06-14 17:35] LABS: Alanine Aminotransferase 78 U/L (6-50); Albumin Level 4.5 g/dL (3.5-5.1); Alkaline Phosphatase 78 U/L (38-126); Anion Gap 8 mmol/L (8-16); Aspartate Amino Transferase 86 U/L (17-59); Bilirubin,Total 1.3 mg/dL (0.2-1.3); Blood Urea Nitrogen 37 mg/dL (9-20); Calcium 8.6 mg/dL (8.4-10.2); Carbon Dioxide 26 mmol/L (22-30); Chloride 104 mmol/L (98-107); Estimated CRCL calculation 62 ml/min; Estimated Glomerular Filt Rate > 60; Glucose 155 mg/dL (65-110); Potassium 4.3 mmol/L (3.4-5.0); Sodium 138 mmol/L (137-145)
[2022-06-14 17:48] LABS: Mucus Urine Heavy /lpf; RBC Urine 51-75 /hpf (0-2); Squamous Epithelial Cell Urine Rare /hpf (Few); WBC Urine 21-30 /hpf
[2022-06-14 17:57] LABS: Amphetamine Screen Urine Negative (Negative); Barbiturate Screen Urine Negative (Negative); Benzodiazepines Screen Urine Negative (Negative); Cannabinoid Screen Urine Negative (Negative); Cocaine Screen Urine Negative (Negative); Methadone Screen Urine Negative (Negative); Opiate Screen Urine Negative (Negative); Phencyclidine Screen Urine Negative (Negative)
[2022-06-14 18:10] LABS: NT Pro B Type Natriuretic Pept 68 pg/mL (5-100); Troponin I 0.166 ng/mL (0.000-0.034)
--- NOTE | 2022-06-14 18:38 | PC.NURSE ---
1830 per verona jenkins unavailable try another service Jovanny declined - no iraida Proctor Ems - No iraida Jenkins ems ETA 2100 Trip [id number]
--- NOTE | 2022-06-14 19:31 | PC.NURSE ---
report received from Ham MCDONALD including history and physical and plan of care
== END 2022-06-15 01:55 ==
PROVIDERS: Emergency Provider Emergency Medicine; PCP Family Medicine
DX: I46.9 Cardiac arrest, cause unspecified (principal); J96.01 Acute respiratory failure with hypoxia; I69.951 Hemiplegia and hemiparesis following unspecified cerebrovascular disease affecting right dominant side; I69.920 Aphasia following unspecified cerebrovascular disease; I25.118 Atherosclerotic heart disease of native coronary artery with other forms of angina pectoris; I10 Essential (primary) hypertension; E78.2 Mixed hyperlipidemia; E03.9 Hypothyroidism, unspecified; M17.11 Unilateral primary osteoarthritis, right knee; Z66 Do not resuscitate; Z95.5 Presence of coronary angioplasty implant and graft; Z98.49 Cataract extraction status, unspecified eye; Z99.3 Dependence on wheelchair; Z79.899 Other long term (current) drug therapy; Z79.82 Long term (current) use of aspirin; R00.0 Tachycardia, unspecified; I45.10 Unspecified right bundle-branch block; R94.31 Abnormal electrocardiogram [ECG] [EKG]
CPT/HCPCS: 36415; 36600; 70450; 71045; 80053; 80307; 81001; 82805; 83880; 84484; 85025; 85380; 85610; 85730; 87086; 93005; 99284